=== PATIENT | female | born 2000 | race American Indian/Alaskan Native ===

== ENCOUNTER 2024-12-24 05:57 | Emergency (ER) | payer SELFPAY ==
[~2024-12-24] VITALS: Ht 170.2 cm; Wt 61.9 kg
[2024-12-24] MEDS ORDERED: AMOXICILLIN/CLAVULANATE K 875 MG HOME.PACK PO ONE (06:30)
[2024-12-24] MEDS ORDERED: AMOX TR-K CLV1 EAC1 PO (06:38)
[2024-12-24 06:51] VITALS: BP 136/78
== END 2024-12-24 06:52 | disposition home or self-care (01) ==
LOC: ED 05:57
DX: K04.7 Periapical abscess without sinus (principal)
CPT/HCPCS: 64400; 99282-25